=== PATIENT | female | born 1975 | race African-American/Black ===

== ENCOUNTER 2023-01-05 19:19 | Emergency (ER) | payer BC, SELFPAY ==
[2023-01-05 19:48] VITALS: BP 133/92; PULSE 76; RESP 18; TEMP 36.7; O2SAT 97; BMI 58.9
[2023-01-05 20:41] LABS: Bilirubin Urine NEGATIVE (NEGATIVE); Blood Urine NEGATIVE (NEGATIVE); Clarity Urine CLEAR (CLEAR); Color Urine LT. YELLOW (YELLOW); Glucose Urine UA NEGATIVE (NEGATIVE); Ketones Urine NEGATIVE (NEGATIVE); Leukocyte Esterase Urine NEGATIVE (NEGATIVE); Nitrite Urine NEGATIVE (NEGATIVE); Protein Urine NEGATIVE (NEG/TRACE); Specific Gravity Urine <=1.005 (1.005-1.025); Urine Microscopic Indicated NO; Urobilinogen Urine 0.2 EU/dL (0.2-1.0); pH Urine 5.5 (5.0-9.0)
--- NOTE | 2023-01-05 21:30 | CT_ITS ---
The [address] [address] Patient Name: JHONATAN MAHMOOD MRN: [id number] date: 1975 Sex: F Assigned Patient Location: ER Current Patient Location: ER Accession/Order Number: [id number] Exam Date: 01/05/2023 22:10 Report Date: 01/05/2023 23:06 At the request of: SUNDAY HANNA Procedure: CT abdomen pelvis wo con EXAMINATION:CT abdomen pelvis wo con INDICATION:pain, right lower back pain. COMPARISON:10/14/2022 TECHNIQUE:Multiple thin section transaxial slices were acquired through the abdomen and pelvis without intravenous contrast. Coronal and sagittal reconstructed images were reviewed. Oral contrastWas not administered. FINDINGS: LOWER CHEST: The lower chest is unremarkable. LIVER: The liver is unremarkable. GALLBLADDER AND BILIARY SYSTEM: No obvious ductal dilation. The gallbladder surgically absent. SPLEEN: The spleen is unremarkable. PANCREAS: The pancreas is unremarkable. ADRENAL GLANDS: The adrenal glands are unremarkable. KIDNEYS AND URETERS: There is no hydronephrosis of the kidneys.No obstructing urologic calcifications are present. VASCULATURE: Vascularity is unremarkable. PERITONEUM/RETROPERITONEUM: Peritoneum/retroperitoneum is unremarkable. LYMPH NODES: No suspicious lymphadenopathy. GASTROINTESTINAL TRACT: The bowel is normal in caliber.There is mild chronic colonic diverticulosis of the colon without acute inflammation to suggest acute diverticulitis.The appendix is visualized and is not inflamed. BLADDER: The urinary bladder is unremarkable. REPRODUCTIVE SYSTEM: Reproductive system is unremarkable. BODY WALL: There is a moderate fat-containing supraumbilical hernia. There is a small fat-containing umbilical hernia. BONES: Osseous structures are unremarkable. IMPRESSION: 1. No acute inflammatory process or obstructive uropathy is identified in the abdomen and pelvis. Similar chronic findings are noted as described above. Electronically authenticated by: JORDAN CANTU Date: 01/05/2023 23:06
--- NOTE | 2023-01-05 21:53 | ED_ITS ---
HPI - General Adult General Chief complaint: Back Pain/Injury Time Seen by Provider: 01/05/23 21:29 Source: patient Mode of arrival: walk-in Limitations: no limitations History of Present Illness HPI narrative: presents complaining of right lower back pain. States last time she had same symptoms she had diverticulitis. Symptoms started 3 days ago and have persisted. No urinary symptoms. No fever or chills Onset (ago): day(s) Related Data Home Medications Medication Instructions Recorded Confirmed No Known Home Medications 01/05/23 01/05/23 Allergies Allergy/AdvReac Type Severity Reaction Status Date / Time No Known Drug Allergies Allergy Verified 01/05/23 19:52 Review of Systems ROS Status of ROS 10 or more systems reviewed and unremarkable except as noted in history and below Exam Constitutional Vital Signs - 24 hr 01/05/23 19:48 Temperature 98.1 F Pulse Rate [Monitor] 76 Respiratory Rate 18 Blood Pressure [Left Arm] 133/92 H Pulse Oximetry 97 Oxygen Delivery Method Room Air HENMT Common normals: normocephalic and head/scalp atraumatic Eye Common normals: EOMs intact bilaterally and conjunctivae normal Neck & C-Spine Common normals: full ROM and no lymphadenopathy Chest Common normals: inspection of chest normal Respiratory Common normals: normal respiratory effort and no use of accessory muscles Cardio Common normals: regular rhythm, S1 normal heart sound and S2 normal heart sound GI Common normals: Normal to inspection, nondistended, normoactive bowel sounds present Extremity Common normals: no joint enlargement Other: right lumbar paravertebral tenderness. No CVA tenderness Neuro Common normals: oriented x3, CN's II-XII intact bilaterally and moves all extremities Psych Common normals: mental status grossly normal Course Vital Signs Vital signs: Vital Signs Temperature 98.1 F 01/05/23 19:48 Pulse Rate 76 01/05/23 19:48 Respiratory Rate 18 01/05/23 19:48 Blood Pressure 133/92 H 01/05/23 19:48 Pulse Oximetry 97 01/05/23 19:48 Oxygen Delivery Method Room Air 01/05/23 19:48 Temperature 98.1 F 01/05/23 19:48 Pulse Rate 76 01/05/23 19:48 Respiratory Rate 18 01/05/23 19:48 Blood Pressure 133/92 H 01/05/23 19:48 Pulse Oximetry 97 01/05/23 19:48 Oxygen Delivery Method Room Air 01/05/23 19:48 Medical Decision Making MDM Narrative Medical decision making narrative: patient presents complaining of right lower back pain. concerned she may have diverticulitis. found to have elevated WBC felt related to her pain as there is no sign of infection. UA clean as well. She was informed of the results of her labs and CT. She states pain is 6/10 but she prefers not to have any pain medication at this time. Discharged home to follow up with her doctor Lab Data Labs: Lab Results 01/05/23 01/05/23 01/05/23 Range/Units 20:16 21:43 21:43 WBC 14.1 H (4.0-11.0) 10^3/uL RBC 4.73 (4.20-5.40) 10^6/uL Hgb 12.5 (12.0-16.0) g/dL Hct 39.5 (36.0-48.0) % MCV 83.5 (81.0-99.0) fL MCH 26.4 L (26.7-34.0) pg MCHC 31.6 (29.9-35.2) g/dL RDW 13.7 (11.0-15.0) % Plt Count 489 H (150-450) 10^3/uL MPV 9.2 L (9.5-13.5) fL Neut % (Auto) 74.9 (43.0-75.0) % Lymph % (Auto) 17.8 L (20.5-60.0) % [place] % (Auto) 4.3 (1.7-12.0) % Eos % (Auto) 1.8 (0.9-7.0) % Baso % (Auto) 0.6 (0.2-2.0) % Neut # (Auto) 10.5 H (1.4-6.5) 10^3/uL Lymph # (Auto) 2.5 (1.2-3.8) 10^3/uL [place] # (Auto) 0.6 (0.3-0.8) 10^3/uL Eos # (Auto) 0.3 (0.0-0.7) 10^3/uL Baso # (Auto) 0.1 (0.0-0.1) 10^3/uL Sodium 132 L (136-145) mmol/L Potassium 3.5 (3.5-5.1) mmol/L Chloride 97 L (98-107) mmol/L Carbon Dioxide 28.1 (21.0-32.0) mmol/L Anion Gap 10.4 BUN 8.0 (7.0-18.0) mg/dL Creatinine 0.88 (0.55-1.02) mg/dL Est GFR ( Amer) >60 (>=60) Est GFR (Non-Af Amer) >60 (>=60) BUN/Creatinine Ratio 9.1 Glucose 115 H (74-106) mg/dL Lactate 1.1 (0.4-2.0) mmol/L Calcium 9.3 (8.5-10.1) mg/dL Total Bilirubin 0.4 0.4 (0.2-1.0) mg/dL Direct Bilirubin 0.1 (0.0-0.2) mg/dL AST 11 L (15-37) U/L ALT (14-59) U/L Total Protein (6.4-8.2) g/dL Albumin (3.4-5.0) g/dL Globulin g/dL Albumin/Globulin Ratio Lipase (73.0-393.0) U/L Urine Color Lt. yellow (YELLOW) Urine Clarity Clear (CLEAR) Urine pH 5.5 (5.0-9.0) Ur Specific [place] <=1.005 A (1.005-1.025) Urine Protein Negative (NEG/TRACE) mg/dL Urine Glucose (UA) Negative (NEGATIVE) mg/dL Urine Ketones Negative (NEGATIVE) mg/dL Urine Occult Blood Negative (NEGATIVE) Urine Nitrite Negative (NEGATIVE) Urine Bilirubin Negative (NEGATIVE) Urine Urobilinogen 0.2 (0.2-1.0) EU/dL Ur Leukocyte Esterase Negative (NEGATIVE) 01/05/23 01/05/23 01/05/23 Range/Units 21:43 21:43 21:43 WBC (4.0-11.0) 10^3/uL RBC (4.20-5.40) 10^6/uL Hgb (12.0-16.0) g/dL Hct (36.0-48.0) % MCV (81.0-99.0) fL MCH (26.7-34.0) pg MCHC (29.9-35.2) g/dL RDW (11.0-15.0) % Plt Count (150-450) 10^3/uL MPV (9.5-13.5) fL Neut % (Auto) (43.0-75.0) % Lymph % (Auto) (20.5-60.0) % [place] % (Auto) (1.7-12.0) % Eos % (Auto) (0.9-7.0) % Baso % (Auto) (0.2-2.0) % Neut # (Auto) (1.4-6.5) 10^3/uL Lymph # (Auto) (1.2-3.8) 10^3/uL [place] # (Auto) (0.3-0.8) 10^3/uL Eos # (Auto) (0.0-0.7) 10^3/uL Baso # (Auto) (0.0-0.1) 10^3/uL Sodium (136-145) mmol/L Potassium (3.5-5.1) mmol/L Chloride (98-107) mmol/L Carbon Dioxide (21.0-32.0) mmol/L Anion Gap BUN (7.0-18.0) mg/dL Creatinine (0.55-1.02) mg/dL Est GFR ( Amer) (>=60) Est GFR (Non-Af Amer) (>=60) BUN/Creatinine Ratio Glucose (74-106) mg/dL Lactate (0.4-2.0) mmol/L Calcium (8.5-10.1) mg/dL Total Bilirubin (0.2-1.0) mg/dL Direct Bilirubin (0.0-0.2) mg/dL AST 12 L (15-37) U/L ALT 17 18 (14-59) U/L Total Protein 8.8 H 9.0 H (6.4-8.2) g/dL Albumin 2.6 L (3.4-5.0) g/dL Globulin g/dL Albumin/Globulin Ratio Lipase (73.0-393.0) U/L Urine Color (YELLOW) Urine Clarity (CLEAR) Urine pH (5.0-9.0) Ur Specific [place] (1.005-1.025) Urine Protein (NEG/TRACE) mg/dL Urine Glucose (UA) (NEGATIVE) mg/dL Urine Ketones (NEGATIVE) mg/dL Urine Occult Blood (NEGATIVE) Urine Nitrite (NEGATIVE) Urine Bilirubin (NEGATIVE) Urine Urobilinogen (0.2-1.0) EU/dL Ur Leukocyte Esterase (NEGATIVE) 01/05/23 01/05/23 01/05/23 Range/Units 21:43 21:43 21:43 WBC (4.0-11.0) 10^3/uL RBC (4.20-5.40) 10^6/uL Hgb (12.0-16.0) g/dL Hct (36.0-48.0) % MCV (81.0-99.0) fL MCH (26.7-34.0) pg MCHC (29.9-35.2) g/dL RDW (11.0-15.0) % Plt Count (150-450) 10^3/uL MPV (9.5-13.5) fL Neut % (Auto) (43.0-75.0) % Lymph % (Auto) (20.5-60.0) % [place] % (Auto) (1.7-12.0) % Eos % (Auto) (0.9-7.0) % Baso % (Auto) (0.2-2.0) % Neut # (Auto) (1.4-6.5) 10^3/uL Lymph # (Auto) (1.2-3.8) 10^3/uL [place] # (Auto) (0.3-0.8) 10^3/uL Eos # (Auto) (0.0-0.7) 10^3/uL Baso # (Auto) (0.0-0.1) 10^3/uL Sodium (136-145) mmol/L Potassium (3.5-5.1) mmol/L Chloride (98-107) mmol/L Carbon Dioxide (21.0-32.0) mmol/L Anion Gap BUN (7.0-18.0) mg/dL Creatinine (0.55-1.02) mg/dL Est GFR ( Amer) (>=60) Est GFR (Non-Af Amer) (>=60) BUN/Creatinine Ratio Glucose (74-106) mg/dL Lactate (0.4-2.0) mmol/L Calcium (8.5-10.1) mg/dL Total Bilirubin (0.2-1.0) mg/dL Direct Bilirubin (0.0-0.2) mg/dL AST (15-37) U/L ALT (14-59) U/L Total Protein (6.4-8.2) g/dL Albumin 2.7 L (3.4-5.0) g/dL Globulin 6.2 6.3 g/dL Albumin/Globulin Ratio 0.4 0.4 Lipase 46.0 L (73.0-393.0) U/L Urine Color (YELLOW) Urine Clarity (CLEAR) Urine pH (5.0-9.0) Ur Specific [place] (1.005-1.025) Urine Protein (NEG/TRACE) mg/dL Urine Glucose (UA) (NEGATIVE) mg/dL Urine Ketones (NEGATIVE) mg/dL Urine Occult Blood (NEGATIVE) Urine Nitrite (NEGATIVE) Urine Bilirubin (NEGATIVE) Urine Urobilinogen (0.2-1.0) EU/dL Ur Leukocyte Esterase (NEGATIVE) Discharge Plan Discharge Chief Complaint: Back Pain/Injury Clinical Impression: Strain of lumbar region Patient Disposition: Home, Self-Care Prescriptions / Home Meds: No Action No Known Home Medications Instructions: Low Back Strain (ED) Stand Alone Forms: Portal Instructions Referrals: EVELIA WHELAN [Primary Care Provider] - 1 week Follow Up Appointments: follow up with the family doctor next week
[2023-01-05 21:54] LABS: Basophils Absolute Auto 0.1 10^3/uL (0.0-0.1); Basophils Percent Auto 0.6 % (0.2-2.0); Eosinophils Absolute Auto 0.3 10^3/uL (0.0-0.7); Eosinophils Percent Auto 1.8 % (0.9-7.0); Hematocrit 39.5 % (36.0-48.0); Hemoglobin 12.5 g/dL (12.0-16.0); Immature Granulocytes Abs Auto 0.08 10^3/uL (0.00-0.03); Immature Granulocytes Pct Auto 0.6 % (0.0-0.5); Lymphocytes Absolute Auto 2.5 10^3/uL (1.2-3.8); Lymphocytes Percent Auto 17.8 % (20.5-60.0); Mean Corpuscular HGB Conc 31.6 g/dL (29.9-35.2); Mean Corpuscular Hemoglobin 26.4 pg (26.7-34.0); Mean Corpuscular Volume 83.5 fL (81.0-99.0); Mean Platelet Volume 9.2 fL (9.5-13.5); Monocytes Absolute Auto 0.6 10^3/uL (0.3-0.8); Monocytes Percent Auto 4.3 % (1.7-12.0); Neutrophils Absolute Auto 10.5 10^3/uL (1.4-6.5); Neutrophils Percent Auto 74.9 % (43.0-75.0); Platelet Count 489 10^3/uL (150-450); Red Blood Count 4.73 10^6/uL (4.20-5.40); Red Cell Distribution Width 13.7 % (11.0-15.0); White Blood Count 14.1 10^3/uL (4.0-11.0)
[2023-01-05 22:06] LABS: Alanine Aminotransferase 17 U/L (14-59); Albumin Globulin Ratio 0.4; Albumin Level 2.6 g/dL (3.4-5.0); Alkaline Phosphatase 62 U/L (46-116); Aspartate Amino Transferase 11 U/L (15-37); Bilirubin Direct 0.1 mg/dL (0.0-0.2); Bilirubin Total 0.4 mg/dL (0.2-1.0); Globulin 6.2 g/dL; Total Protein 8.8 g/dL (6.4-8.2)
[2023-01-05 22:08] LABS: Alanine Aminotransferase 18 U/L (14-59); Albumin Globulin Ratio 0.4; Albumin Level 2.7 g/dL (3.4-5.0); Alkaline Phosphatase 65 U/L (46-116); Anion Gap 10.4; Aspartate Amino Transferase 12 U/L (15-37); BUN Creatinine Ratio 9.1; Bilirubin Total 0.4 mg/dL (0.2-1.0); Calcium 9.3 mg/dL (8.5-10.1); Carbon Dioxide 28.1 mmol/L (21.0-32.0); Chloride 97 mmol/L (98-107); Estimated GFR (African America >60 (>=60); Estimated GFR (Non-African Ame >60 (>=60); Globulin 6.3 g/dL; Glucose 115 mg/dL (74-106); Potassium 3.5 mmol/L (3.5-5.1); Sodium 132 mmol/L (136-145)
[2023-01-05 22:10] LABS: Lactate/Lactic Acid 1.1 mmol/L (0.4-2.0)
== END 2023-01-05 23:38 | disposition home or self-care (01) ==
PROVIDERS: Emergency Provider Internal Medicine; PCP Internal Medicine
DX: S39.012A Strain of muscle, fascia and tendon of lower back, initial encounter (principal)
CPT/HCPCS: 36415; 74176; 80053; 80076; 81001; 81003; 83605; 83690; 85025; 99284

== ENCOUNTER 2025-04-18 15:05 | Emergency (ER) | payer BC, SELFPAY ==
[2025-04-18] VITALS (8 sets, daily range): BP systolic 122–130; BP diastolic 72–76; PULSE 78–99; TEMP 36.8; O2SAT 93–97; BMI 64.2
--- NOTE | 2025-04-18 15:27 | ECG_ITS ---
[facility] Test Date: 2025-04-18 Pat Name: JHONATAN MAHMOOD Department: Room: - Gender: Female Manager Of Finance: : 1975 Requested By: [id number] Order Number: [id number] Reading MD: YVETTE LOPEZ Measurements Intervals [place] Rate: 88 P: 68 DC: 146 QRS: 90 QRSD: 88 T: 73 QT: 356 QTc: 401 Interpretive Statements 1100 Sinus rhythm 9110 normal ECG No previous ECG available for comparison Electronically Signed On 04-19-2025 16:48:43 EDT by YVETTE LOPEZ
--- NOTE | 2025-04-18 15:27 | XR_ITS ---
[place] [id number] Patient Name: JHONATAN MAHMOOD MRN: [id number] date: 1975 Sex: F Assigned Patient Location: ER Current Patient Location: ED.MAIN Accession/Order Number: [id number] Exam Date: 04/18/2025 15:45 Report Date: 04/18/2025 16:16 At the request of: KATLIN FREITAS MD Procedure: XR chest 1V Plain film chest Single view HISTORY: Chest pain COMPARISON: None FINDINGS: SUPPORT DEVICES: None POSTSURGICAL CHANGES: None HEART: Within normal limits PULMONARY ARIEL: Within normal limits MEDIASTINUM: Unremarkable LUNGS AND PLEURA: No acute lung process, pleural effusion or pneumothorax identified. Large patient body habitus with haziness of the lung bases BONY STRUCTURES: Intact ADDITIONAL FINDINGS None XR/XR chest 1V IMPRESSION: No acute process. Impression dictated by: Juan Hernandez M.D. 04/18/2025 4:16 PM Dictation Location: [employer] Electronically authenticated by: [id number] Y Date: 04/18/2025 16:16
--- NOTE | 2025-04-18 15:33 | ED.GENADUL1 ---
HPI HPI - General Adult General Chief complaint: Chest Pain Stated complaint: Chest Pain Time Seen by Provider: 04/18/25 15:13 Source: patient Mode of arrival: walk-in History of Present Illness HPI narrative: 50-year-old female presents for chest pain. It is in the middle part of her chest and she states it feels like indigestion. It started about 2-1/2 hours ago when she was having lunch. The left side of her neck has been hurting all day since she woke up but she states she slept on her neck wrong last night. The pain does not seem to radiate otherwise and she has no history of heart disease. No fever or cough or complaints of shortness of breath. She did not take any medication for it. Related Data Home Medications ?Medication ?Instructions ?Recorded ?Confirmed No Known Home Medications 01/05/23 04/18/25 Allergies Allergy/AdvReac Type Severity Reaction Status Date / Time No Known Drug Allergies Allergy Verified 04/18/25 15:11 Opioid HPI Opioid Management Most Recent Opioid Data: Last Pain Scale 4 Today, 15:11 Review of Systems ROS Narrative A ten point review of systems is negative except as noted above. PFSH PFSH Social History Little interest or pleasure in doing things: not at all Feeling down, depressed, or hopeless: not at all Exam Narrative Exam Narrative: Nurses note and vital signs reviewed and patient is not hypoxic. General: The patient appears well and in no apparent distress. Patient is resting comfortably on cart. Skin: Warm, dry, no pallor noted. There is no rash noted. Head: Normocephalic, atraumatic Eye: Normal conjunctiva, no drainage Ears, Nose, Mouth, and Throat: oral mucosa is moist. Nares patent. Cardiovascular: Regular Rate and Rhythm Respiratory: Patient is in no distress, no accessory muscle use, lungs are clear to auscultation, no wheezing, rales or rhonchi Back: non-tender GI: Soft obese and nontender Musculoskeletal: The patient has no evidence of calf tenderness, no pitting edema, symmetrical pulses noted bilaterally Neurological: A&O, normal speech Psychiatric: Cooperative Constitutional Vital Signs, click to edit/add: Last Vital Signs Temp 98.3 F 04/18/25 15:11 Pulse 99 H 04/18/25 15:11 Resp 18 04/18/25 15:11 BP 130/74 04/18/25 15:11 Pulse Ox 97 04/18/25 15:11 O2 Del Method Room Air 04/18/25 15:11 Course Vital Signs Vital signs: Vital Signs Temperature 98.3 F 04/18/25 15:11 Pulse Rate 99 H 04/18/25 15:11 Respiratory Rate 18 04/18/25 15:11 Blood Pressure 130/74 04/18/25 15:11 Pulse Oximetry 97 04/18/25 15:11 Oxygen Delivery Method Room Air 04/18/25 15:11 Temperature 98.3 F 04/18/25 15:11 Pulse Rate 99 H 04/18/25 15:11 Respiratory Rate 18 04/18/25 15:11 Blood Pressure 130/74 04/18/25 15:11 Pulse Oximetry 97 04/18/25 15:11 Oxygen Delivery Method Room Air 04/18/25 15:11 Medical Decision Making MDM Narrative Medical decision making narrative: Her workup including troponin and EKG and chest x-ray all show normal or no acute findings. She is being discharged home. She felt her symptoms relief completely with a GI cocktail and was recommended Tums or Maalox if her symptoms recur. Treatment diagnosis and follow-up were discussed with the patient. At this point I see no evidence of CAD. Differential Diagnosis Differential Diagnosis: AR, NSTEMI, chest pain, GERD Lab Data Lab results reviewed: Yes I reviewed the patient's lab results Labs: Lab Results 04/18/25 Range/Units 15:30 WBC 13.6 H (4.0-11.0) 10^3/uL RBC 4.60 (4.20-5.40) 10^6/uL Hgb 12.2 (12.0-16.0) g/dL Hct 37.5 (36.0-48.0) % MCV 81.5 (81.0-99.0) fL MCH 26.5 L (26.7-34.0) pg MCHC 32.5 (29.9-35.2) g/dL RDW 13.4 (11.0-15.0) % Plt Count 443 (150-450) 10^3/uL MPV 9.6 (9.5-13.5) fL Neut % (Auto) 72.0 (43.0-75.0) % Lymph % (Auto) 18.8 L (20.5-60.0) % [place] % (Auto) 5.8 (1.7-12.0) % Eos % (Auto) 2.3 (0.9-7.0) % Baso % (Auto) 0.7 (0.2-2.0) % Neut # (Auto) 9.8 H (1.4-6.5) 10^3/uL Lymph # (Auto) 2.6 (1.2-3.8) 10^3/uL [place] # (Auto) 0.8 (0.3-0.8) 10^3/uL Eos # (Auto) 0.3 (0.0-0.7) 10^3/uL Baso # (Auto) 0.1 (0.0-0.1) 10^3/uL Abs Immat Gran (auto) 0.06 H (0.00-0.03) 10^3/uL Imm/Tot Granulo (auto) 0.4 (0.0-0.5) % Sodium 138 (136-145) mmol/L Potassium 3.8 (3.5-5.1) mmol/L Chloride 102 (98-107) mmol/L Carbon Dioxide 27.8 (21.0-32.0) mmol/L Anion Gap 12.0 BUN 10.0 (7.0-18.0) mg/dL Creatinine 0.70 (0.55-1.02) mg/dL Est GFR ( Amer) >60 (>=60 mL/min/1.73m^2) Est GFR (Non-Af Amer) >60 (>=60 mL/min/1.73m^2) BUN/Creatinine Ratio 14.3 Glucose 117 H (74-106) mg/dL Calcium 9.0 (8.5-10.1) mg/dL Troponin I High Sens <4.0 L (4.0-51.3) pg/mL Imaging Data Chest x-ray: My impression: No acute findings ECG Data Attestation: I personally reviewed and interpreted this ECG as follows: (EKG on my interpretation shows sinus rhythm with a rate of 88 and no acute change.) Discharge Plan Discharge Chief Complaint: Chest Pain Clinical Impression: Chest pain Patient Disposition: Home, Self-Care Time of Disposition Decision: 16:06 Condition: Good Mode of Transportation: Private Vehicle Prescriptions / Home Meds: No Action No Known Home Medications Print Language: [place]alan Instructions: Chest Pain (ED) Referrals: EVELIA WHELAN [Primary Care Provider, Family Practice] - 1 week
[2025-04-18 15:41] LABS: Hematocrit 37.5 % (36.0-48.0); Hemoglobin 12.2 g/dL (12.0-16.0); Immature Granulocytes Abs Auto 0.06 10^3/uL (0.00-0.03); Immature Granulocytes Pct Auto 0.4 % (0.0-0.5); Lymphocytes Absolute Auto 2.6 10^3/uL (1.2-3.8); Mean Corpuscular HGB Conc 32.5 g/dL (29.9-35.2); Mean Corpuscular Hemoglobin 26.5 pg (26.7-34.0); Mean Corpuscular Volume 81.5 fL (81.0-99.0); Platelet Count 443 10^3/uL (150-450); Red Blood Count 4.60 10^6/uL (4.20-5.40); White Blood Count 13.6 10^3/uL (4.0-11.0)
[2025-04-18] MEDS: lidocaine HCL 15 ML, MAG HYDROX/ALUMINUM HYD/SIMETH 30 ML, HYOSCYAMINE SULFATE 0.25 MG PO (15:41)
[2025-04-18 15:55] LABS: Anion Gap 12.0; Blood Urea Nitrogen 10.0 mg/dL (7.0-18.0); Calcium 9.0 mg/dL (8.5-10.1); Carbon Dioxide 27.8 mmol/L (21.0-32.0); Chloride 102 mmol/L (98-107); Estimated GFR (African America >60 (>=60 mL/min/1.73m^2); Estimated GFR (Non-African Ame >60 (>=60 mL/min/1.73m^2); Glucose 117 mg/dL (74-106); Potassium 3.8 mmol/L (3.5-5.1); Sodium 138 mmol/L (136-145)
== END 2025-04-18 16:15 | disposition home or self-care (01) ==
PROVIDERS: Emergency Provider Emergency Medicine; PCP Internal Medicine
DX: R07.9 Chest pain, unspecified (principal)
CPT/HCPCS: 36415; 71045; 80048; 84484; 85025; 93005; 99284; 99285